=== PATIENT | male | born 1970 | race Caucasian/White ===

== ENCOUNTER 2020-07-09 10:33 | Outpatient (REF) | payer OTHER, SELFPAY ==
[2020-07-09 10:58] LABS: MANUAL DIFF FLAG NO
[2020-07-09 11:33] LABS: Glucose Urine UA NEG (NEG); Leukocyte Esterase Urine NEG (NEG); Nitrite Urine NEG (NEG); PH 8.5 (5.0-8.0); Specific Gravity - Urine 1.015 (1.005-1.025); Urine Blood NEG (NEG); Urine Ketones NEG (NEG); Urine Protein NEG (NEG-TRACE)
[2020-07-09 11:36] LABS: Basophils Percent Auto 0.5 % (0-2); Eosinophils Absolute Auto 0.3 X10*3/uL (0.0-0.4); Eosinophils Percent Auto 4.6 % (0-4); Hematocrit 49.7 % (42-52); Hemoglobin 16.4 g/dl (14.0-18.0); Imm Gran Abs Auto 0.01 X10*3/uL (0.00-0.03); Imm Gran Pct Auto 0.2 % (0.0-0.4); Lymphocytes Percent Auto 34.6 % (20-40); Mean Corpuscular Hemoglobin 32.1 pg (27.0-33.0); Mean Corpuscular Volume 97.3 fL (80-98); Mean Platelet Volume 9.3 fL (9.4-12.4); Monocytes Absolute Auto 0.5 X10*3/uL (0.1-1.2); Monocytes Percent Auto 8.5 % (2-11); Neutrophils Absolute Auto 2.9 X10*3/uL (2.0-8.3); Neutrophils Percent Auto 51.6 % (45-73); Platelet Count 289 X10*3/uL (160-400); Red Blood Count 5.11 X10*6/uL (4.60-5.80); Red Cell Distribution Width 12.3 % (11.0-16.0); White Blood Count 5.7 X10*3/uL (4.8-10.8)
[2020-07-09 11:47] LABS: Estimated Average Glucose 117 mg/dL; Hemoglobin A1c % 5.7 %
[2020-07-09 11:49] LABS: Appearance Urine CLEAR; Color Urine YELLOW
[2020-07-09 12:04] LABS: Alanine Aminotransferase 43 U/L (0-40); Albumin Level 4.4 g/dL (3.5-5.0); Alkaline Phosphatase 59 U/L (39-117); Anion Gap 12 (12-20); Aspartate Amino Transferase 25 U/L (5-37); Bilirubin Total 0.8 mg/dL (0.0-1.0); Blood Urea Nitrogen 21 mg/dL (9-16); Calcium 9.1 mg/dL (8.4-10.2); Carbon Dioxide 28 mmol/L (22-29); Chloride 105 mmol/L (96-108); Cholesterol 197 mg/dL; Estimated Glomerular Filt Rate > 60; Glucose Fasting 116 mg/dL (60-99); HDL Cholesterol 48 mg/dL; LDL Cholesterol Calculated 129 mg/dl; Sodium 141 mmol/L (135-145); Total Protein 6.9 g/dL (6.5-8.0); Triglycerides 102 mg/dL
[2020-07-09 12:18] LABS: Creatinine Urine 126.52 mg/dL; Microalbumin Urine < 5.0 mg/L
[2020-07-09 12:26] LABS: PSA,Total (Free>4and<10) 2.07 ng/mL (0.00-4.00)
== END 2020-07-09 10:34 | disposition home or self-care (01) ==
LOC: HO.LNP 10:33
PROVIDERS: Visit Provider Internal Medicine
DX: Z00.00 Encounter for general adult medical examination without abnormal findings (principal); Z12.5 Encounter for screening for malignant neoplasm of prostate; I10 Essential (primary) hypertension; R73.03 Prediabetes; R97.20 Elevated prostate specific antigen [PSA]
CPT/HCPCS: 80053; 80061; 81003; 82043; 83036; 84153; 85025

== ENCOUNTER 2020-09-06 10:06 | Outpatient (REF) | payer OTHER, SELFPAY ==
[2020-09-06 11:14] LABS: Blood Urea Nitrogen 18 mg/dL (9-16)
== END 2020-09-06 10:07 | disposition home or self-care (01) ==
LOC: HO.LNP 10:06
PROVIDERS: Visit Provider Internal Medicine
DX: R79.9 Abnormal finding of blood chemistry, unspecified (principal)
CPT/HCPCS: 84520

== ENCOUNTER 2020-09-10 16:00 | Outpatient (RCR) | payer OTHER, SELFPAY ==
--- NOTE | 2020-08-07 17:49 | MHC.PT.EP ---
[facility] [place] [facility] [place] [facility] [place] [facility] [address] Yamil Mondragon [address] [phone] F: [phone] F: [phone] F: [phone] F: [phone] Physical Therapy Plan of Care Date of Evaluation: 08/07/20 Date of Surgery: N/A Diagnosis: pain in R shoulder Assessment: pt's signs and symptoms consistent w/ poor habitual posture and muscle tension and tightness. pt presents to physical therapy with pain, decreased strength, impaired functional mobility, and impaired postural awareness. pt is a good candidate for skilled PT due to age, potential remediation of impairments, typical disease/condition progression and prognosis, comorbidities, and motivation. pt would benefit from tailored strengthening and stretching exercise program, functional training, postural re-training, neuromuscular re-education, and modalities as needed for pain. Frequency and Duration: The patient will be seen 2x/wk for 4 wks Short Term Goals: pt will be I w/ HEP to promote self-management of condition. pt will demo proper sitting posture w/ lumbar roll to facilitate neutral spine assessed via teachback method. [employer] Goals: pt will report a statistically significant improvement in self-reported outcome measure, SPADI, to facilitate return to PLOF. pt will report <1/10 neck/shoulder pain w/ 8 hr work shift to facilitate pain-free return to work. Treatment Plan: Modalities to reduce pain, spasms and effusion. Manual therapy to restore motion and function. Therapeutic exercise to improve strength and flexibility. Neuromuscular re-education for posture and balance. Therapeutic activities to return to functional activities of daily living. Electronically signed by: Destini Oh PT, DPT Please sign and return to therapist. Thank you for your referral.
--- NOTE | 2020-09-23 12:20 | MHC.PT.DC ---
[facility] [place] Office [place] Office [place] Office [address] Yamil Mondragon [address] [phone] F: [phone] F: [phone] F: [phone] F: [phone] Physical Therapy Discharge Report Diagnosis: pain in R shoulder Date of Surgery: N/A Date of Evaluation: 08/07/20 Date of Discharge: 09/23/20 Treatments to Date: 7 Cancellations to Date: 1 No Shows to Date: 0 Discharge Status: Improved Function Independent with HEP Discharge Summary: The patient called to cancel his last visit and has not rescheduled. 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 He was instructed in strategies to reduce stress on neck with work-related activities. He is independent with his home exercise program. Overall, he was demonstrating improved cervical and shoulder mechanics with movement. He is discharged from this physical therapy plan of care. Electronically signed by: Destini Oh PT, DPT Please sign and return to therapist. Thank you for your referral.
== END 2020-09-23 12:21 | disposition other institution (70) ==
LOC: HO.PT 16:00
PROVIDERS: PCP Internal Medicine; Visit Provider Internal Medicine
DX: M25.511 Pain in right shoulder (principal)
CPT/HCPCS: 97110; 97112; 97140; 97161; 97530

== ENCOUNTER 2021-07-28 10:23 | Outpatient (REF) | payer OTHER, SELFPAY ==
[2021-07-28 10:31] LABS: MANUAL DIFF FLAG NO
[2021-07-28 11:01] LABS: Appearance Urine CLEAR; Color Urine YELLOW; Glucose Urine UA NEG (NEG); Leukocyte Esterase Urine NEG (NEG); Nitrite Urine NEG (NEG); Specific Gravity - Urine 1.015 (1.005-1.025); Urine Blood NEG (NEG); Urine Ketones NEG (NEG); Urine Protein NEG (NEG-TRACE)
[2021-07-28 11:02] LABS: Basophils Percent Auto 0.5 % (0-2); Eosinophils Absolute Auto 0.3 X10*3/uL (0.0-0.4); Eosinophils Percent Auto 5.4 % (0-4); Hematocrit 48.8 % (42.0-52.0); Hemoglobin 15.9 g/dl (14.0-18.0); Imm Gran Abs Auto 0.02 X10*3/uL (0.00-0.03); Imm Gran Pct Auto 0.3 % (0.0-0.4); Lymphocytes Absolute Auto 2.2 X10*3/uL (1.2-4.9); Lymphocytes Percent Auto 36.7 % (20-40); Mean Corpuscular HGB Conc 32.6 g/dl (31.0-36.0); Mean Corpuscular Hemoglobin 31.4 pg (27.0-33.0); Mean Corpuscular Volume 96.3 fL (80.0-98.0); Mean Platelet Volume 9.3 fL (9.4-12.4); Monocytes Absolute Auto 0.6 X10*3/uL (0.1-1.2); Monocytes Percent Auto 10.7 % (2-11); Neutrophils Absolute Auto 2.7 x10*3/uL (2.0-8.3); Neutrophils Percent Auto 46.4 % (45-73); Platelet Count 280 X10*3/uL (160-400); Red Blood Count 5.07 X10*6/uL (4.60-5.80); Red Cell Distribution Width 12.6 % (11.0-16.0); White Blood Count 5.9 X10*3/uL (4.8-10.8)
[2021-07-28 11:12] LABS: Alanine Aminotransferase 34 U/L (0-40); Alkaline Phosphatase 58 U/L (39-117); Anion Gap 10 (12-20); Aspartate Amino Transferase 26 U/L (5-37); Bilirubin Total 1.1 mg/dL (0.0-1.0); Blood Urea Nitrogen 17 mg/dL (9-16); Calcium 9.4 mg/dL (8.4-10.2); Carbon Dioxide 29 mmol/L (22-29); Chloride 104 mmol/L (96-108); Cholesterol 187 mg/dL; Estimated Glomerular Filt Rate > 60; Glucose Random 127 mg/dL (60-115); HDL Cholesterol 43 mg/dL; LDL Cholesterol Calculated 118 mg/dl; Potassium 4.2 mmol/L (3.3-5.1); Sodium 139 mmol/L (135-145); Total Protein 6.6 g/dL (6.5-8.0); Triglycerides 132 mg/dL
[2021-07-28 11:17] LABS: Estimated Average Glucose 123 mg/dL; Hemoglobin A1c % 5.9 %
[2021-07-28 11:33] LABS: PSA,Total (Free>4and<10) 3.11 ng/mL (0.00-4.00)
== END 2021-07-28 10:24 | disposition home or self-care (01) ==
LOC: HO.LNP 10:23
PROVIDERS: Visit Provider Internal Medicine
DX: Z00.00 Encounter for general adult medical examination without abnormal findings (principal); Z12.5 Encounter for screening for malignant neoplasm of prostate; I10 Essential (primary) hypertension; R73.03 Prediabetes; R97.20 Elevated prostate specific antigen [PSA]
CPT/HCPCS: 80053; 80061; 81003; 83036; 84153; 85025

== ENCOUNTER 2021-08-04 10:44 | Outpatient (REF) | payer OTHER, SELFPAY ==
[2021-08-04 12:26] LABS: Prostate Specific Antigen 1.82 ng/mL (<0.05-4.0)
== END 2021-08-04 10:45 | disposition home or self-care (01) ==
LOC: HO.LNP 10:44
PROVIDERS: PCP Internal Medicine; Visit Provider Internal Medicine
DX: R97.20 Elevated prostate specific antigen [PSA] (principal); Z12.5 Encounter for screening for malignant neoplasm of prostate
CPT/HCPCS: 84153

== ENCOUNTER 2022-01-07 08:13 | Day surgery (SDC) | payer OTHER, SELFPAY ==
[2022-01-01 09:06] VITALS: BMI 28.6
[2022-01-07 08:35] VITALS: BMI 28.6
[2022-01-07 08:53] VITALS: BP 151/89; PULSE 72; RESP 17; TEMP 36.5; O2SAT 97; BMI 28.6
[2022-01-07] MEDS: Lactated Ringers 1,000 ML 50 ML IVCONT (09:17)
--- NOTE | 2022-01-07 10:09 | P.CONAN_ITS ---
[facility] Active Problems Active Problems: hypertension Past Medical History Medical History No known health problems Family History Family history of problems with anesthesia: No Surgical History Surgical History No pertinent past surgical history History of Problems with Anesthesia: No Social History Social History Patient Tobacco Use Status: Never used Tobacco Use of substances other than those prescribed or required for medical reasons: No Are you DNR?: No Advance Directives: No Advance Directives Information Provided: Yes Meds Allergies Allergy/AdvReac Type Severity Reaction Status Date / Time No Known Allergies Allergy Verified 01/01/22 09:05 Active Medications: Current Medications Lactated Ringer's (Lr) 1,000 mls @ 50 mls/hr IVCONT .Q20H YENY Last Admin: 01/07/22 09:17 Dose: 50 mls/hr Ondansetron HCl (Ondansetron Hcl 4 Mg/2 Ml Vial) 4 mg IVPUSH ONCE PRN PRN Reason: Nausea and Vomiting Sodium Biphosphate/Sodium Phosphate (Sodium Phosphate,York-Dibasic 133 Ml Enema) 133 ml MS ONCE PRN PRN Reason: Poor Colonoscopy Prep Results Home Medications Medication Instructions Recorded Confirmed Last Taken Type tadalafil 20 mg tablet 10 mg PO DAILY PRN Erectile 01/01/22 01/01/22 Unknown History Dysfunction Exam Exam Date and Time: January 07, 2022 1009 Height,Weight and Vital Signs: Height 5 ft 5 in Weight 78.018 kg Last Vital Signs Temp 97.7 F 01/07/22 08:53 Pulse 72 01/07/22 08:53 Resp 17 01/07/22 08:53 BP 151/89 H 01/07/22 08:53 Pulse Ox 97 01/07/22 08:53 O2 Del Method 01/07/22 08:53 Airway Mallampati Class: IV TM Dist: >3cm Neck ROM: Full Loose/Missing/Broken Teeth: No Heart: rrr Lungs: clear Assessment and Plan Final Anesthetic Review Family History of Problems with Anesthesia: No History of Problems with Anesthesia: No NPO: Yes ASA Class: II Final Preanesthetic Review: No Changes in Pt Med Stat, Meds/Allgs Chart Reviewed, Consent Obtained/Reviewed and Anes Risks/Benef Reviewed Patient Risk: Low Procedure Risk: Low Anesthetic Plan Anesthetic Plan: MAC: Disposition: Standard PACU
--- NOTE | 2022-01-07 10:59 | PM.OP ---
Brief Operative Note Date of Service: 01/07/22 Pre-op diagnosis: Screening Post-op diagnosis: other (Polyp) Procedure: Colonoscopy to the cecum and TI with bx/removal of polyp Surgeon: Clarence Rizvi Anesthesia: MAC Was an Geochemical Laboratory Technician used for this Procedure?: No Estimated blood loss (mL): 2.0 Pathology: other (A. Cecal polyp) Condition: stable Disposition: PACU
[2022-01-07 11:00] VITALS: BP 103/62; PULSE 82; RESP 18; TEMP 36.6; O2SAT 96
[2022-01-07 11:15] VITALS: BP 118/83; PULSE 72; RESP 18; TEMP 36.6; O2SAT 97
--- NOTE | 2022-01-07 23:18 | OP_ITS ---
SURGEON: Clarence Rizvi MD INDICATIONS: The patient presents for evaluation of colorectal cancer screening and family history of colon cancer. Full consent was obtained from him for this, including risks of bleeding and perforation. PREOPERATIVE DIAGNOSIS: POSTOPERATIVE DIAGNOSIS: PROCEDURE PERFORMED: Colonoscopy to the cecum and terminal ileum with biopsy and removal of polyp. ESTIMATED BLOOD LOSS: COMPLICATIONS: ANESTHESIA: Monitored anesthesia care. ASSISTANTS: SPECIMENS: PREOPERATIVE DIAGNOSES: Colorectal cancer screening and family history of colon. POSTOPERATIVE DIAGNOSES: Colorectal cancer screening and family history of colon, small colon polyp, internal hemorrhoids. DESCRIPTION OF PROCEDURE: The patient was placed in the left lateral decubitus position. The digital rectal exam revealed no abnormalities. The Olympus video pediatric colonoscope was entered into the rectum and advanced easily to the cecum. Once in the cecum, I did identify normal-appearing ileocecal valve. The terminal ileum was cannulated and appeared normal. Scope was withdrawn back in the colon. The entire cecum and ileocecal valve appeared normal other than an approximately 3 or 4 mm polyp in the cecum, which was biopsied and completely removed with cold biopsy forceps. The scope was slowly withdrawn assessing all mucosal surfaces carefully. Preparation was excellent. I did not visualize any other polyps, colitis, nor angiodysplasia. In the rectum, scope was retroflexed visualizing minimal internal hemorrhoids, but no other pathology. The rectal mucosa appeared normal. The scope was straightened and withdrawn from the patient. He tolerated the procedure well and was returned to the recovery area in stable condition. IMPRESSION: 1. Small colon polyp, status post biopsy and removal. 2. Small internal hemorrhoids. PLAN: The results of the biopsy will be checked. Even if this is not a tubular adenoma, I would recommend a followup coloscopy in 5 years for further screening, given the family history of colon cancer in his father. He will otherwise see me on a p.r.n. basis. Clarence Rizvi MD RMHiro/SAMAN / [phone]
== END 2022-01-07 11:37 | disposition home or self-care (01) ==
PROVIDERS: PCP Internal Medicine; Visit Provider Internal Medicine
PROC: 0DJD8ZZ Inspection of Lower Intestinal Tract, Via Natural or Artificial Opening Endoscopic (ICD-10-PCS; CPT 45378; principal; 2022-01-07 09:40)
DX: Z12.11 Encounter for screening for malignant neoplasm of colon (principal); Z80.0 Family history of malignant neoplasm of digestive organs; K63.5 Polyp of colon; K64.8 Other hemorrhoids; N52.9 Male erectile dysfunction, unspecified; Z79.899 Other long term (current) drug therapy
CPT/HCPCS: 45380; 88305

== ENCOUNTER 2022-07-30 11:49 | Outpatient (REF) | payer OTHER, SELFPAY ==
[2022-07-30 11:56] LABS: MANUAL DIFF FLAG NO
[2022-07-30 12:48] LABS: Basophils Percent Auto 0.7 % (0-2); Eosinophils Absolute Auto 0.2 X10*3/uL (0.0-0.4); Eosinophils Percent Auto 3.6 % (0-4); Hemoglobin 16.5 g/dl (14.0-18.0); Imm Gran Abs Auto 0.01 X10*3/uL (0.00-0.03); Imm Gran Pct Auto 0.2 % (0.0-0.4); Mean Corpuscular HGB Conc 33.7 g/dl (31.0-36.0); Mean Corpuscular Hemoglobin 32.4 pg (27.0-33.0); Mean Corpuscular Volume 96.3 fL (80.0-98.0); Mean Platelet Volume 9.4 fL (9.4-12.4); Monocytes Absolute Auto 0.6 X10*3/uL (0.1-1.2); Monocytes Percent Auto 10.5 % (2-11); Neutrophils Absolute Auto 2.7 x10*3/uL (2.0-8.3); Platelet Count 277 X10*3/uL (160-400); Red Blood Count 5.09 X10*6/uL (4.60-5.80); Red Cell Distribution Width 12.8 % (11.0-16.0); White Blood Count 5.5 X10*3/uL (4.8-10.8)
[2022-07-30 12:52] LABS: Appearance Urine Clear; Color Urine Yellow; Glucose Urine UA Negative (Negative); Leukocyte Esterase Urine Negative (Negative); Nitrite Urine Negative (Negative); PH 8.5 (5.0-9.0); Urine Blood Negative (Negative); Urine Ketones Negative (Negative); Urine Protein Negative (Neg-Trace)
[2022-07-30 12:56] LABS: Bacteria Urine None Seen (None Seen); Hyaline Casts Urine 0-2 /LPF (0-2); RBC Urine 0-2 /HPF (0-2); Squamous Epithelial Cell Urine 0-2 /HPF (0-2); WBC Urine 0-5 /HPF (0-5)
[2022-07-30 12:58] LABS: Estimated Average Glucose 126 mg/dL
[2022-07-30 13:41] LABS: Creatinine Urine 64.77 mg/dL; Microalbumin Urine < 5.0 mg/L
[2022-07-30 14:01] LABS: Alanine Aminotransferase 50 U/L (0-40); Albumin Level 4.2 g/dL (3.5-5.0); Alkaline Phosphatase 61 U/L (39-117); Anion Gap 10 (12-20); Aspartate Amino Transferase 29 U/L (5-37); Bilirubin Total 0.9 mg/dL (0.0-1.0); Blood Urea Nitrogen 16 mg/dL (9-16); Calcium 8.8 mg/dL (8.4-10.2); Carbon Dioxide 29 mmol/L (22-29); Chloride 105 mmol/L (96-108); Cholesterol 217 mg/dL; Estimated Glomerular Filt Rate > 60; Glucose Fasting 119 mg/dL (60-99); HDL Cholesterol 43 mg/dL; LDL Cholesterol Calculated 152 mg/dl; Potassium 3.9 mmol/L (3.3-5.1); Sodium 140 mmol/L (135-145); Total Protein 6.6 g/dL (6.5-8.0); Triglycerides 114 mg/dL
[2022-07-30 14:06] LABS: PSA,Total (Free>4and<10) 1.81 ng/mL (0.00-4.00)
== END 2022-07-30 11:50 | disposition home or self-care (01) ==
LOC: HO.LNP 11:49
PROVIDERS: Visit Provider Internal Medicine
DX: Z00.00 Encounter for general adult medical examination without abnormal findings (principal); I10 Essential (primary) hypertension; R73.03 Prediabetes; R97.20 Elevated prostate specific antigen [PSA]; Z12.5 Encounter for screening for malignant neoplasm of prostate
CPT/HCPCS: 80053; 80061; 81001; 82043; 83036; 84153; 85025

== ENCOUNTER 2023-08-02 10:50 | Outpatient (REF) | payer SELFPAY ==
[2023-08-02 10:55] LABS: MANUAL DIFF FLAG NO
[2023-08-02 11:36] LABS: Appearance Urine Clear; Color Urine Yellow; Glucose Urine UA Negative (Negative); Leukocyte Esterase Urine Negative (Negative); Nitrite Urine Negative (Negative); PH 7.5 (5.0-9.0); Urine Blood Negative (Negative); Urine Ketones Negative (Negative); Urine Protein Negative (Neg-Trace)
[2023-08-02 11:39] LABS: Bacteria Urine None Seen (None Seen); Basophils Percent Auto 0.5 % (0-2); Eosinophils Absolute Auto 0.1 X10*3/uL (0.0-0.4); Eosinophils Percent Auto 2.3 % (0-4); Hematocrit 48.9 % (42.0-52.0); Hemoglobin 16.3 g/dl (14.0-18.0); Hyaline Casts Urine 0-2 /LPF (0-2); Imm Gran Abs Auto 0.02 X10*3/uL (0.00-0.03); Imm Gran Pct Auto 0.4 % (0.0-0.4); Lymphocytes Percent Auto 36.1 % (20-40); Mean Corpuscular HGB Conc 33.3 g/dl (31.0-36.0); Mean Corpuscular Hemoglobin 31.8 pg (27.0-33.0); Mean Corpuscular Volume 95.3 fL (80.0-98.0); Mean Platelet Volume 9.4 fL (9.4-12.4); Monocytes Absolute Auto 0.5 X10*3/uL (0.1-1.2); Monocytes Percent Auto 8.5 % (2-11); Neutrophils Absolute Auto 2.9 x10*3/uL (2.0-8.3); Neutrophils Percent Auto 52.2 % (45-73); Platelet Count 268 X10*3/uL (160-400); RBC Urine 0-2 /HPF (0-2); Red Blood Count 5.13 X10*6/uL (4.60-5.80); Red Cell Distribution Width 12.7 % (11.0-16.0); Squamous Epithelial Cell Urine 0-2 /HPF (0-2); WBC Urine 0-5 /HPF (0-5); White Blood Count 5.6 X10*3/uL (4.8-10.8)
[2023-08-02 11:54] LABS: Estimated Average Glucose 131 mg/dL; Hemoglobin A1c % 6.2 % (<6.0)
[2023-08-02 11:59] LABS: Alanine Aminotransferase 41 U/L (0-40); Albumin Level 4.2 g/dL (3.5-5.0); Alkaline Phosphatase 62 U/L (39-117); Anion Gap 13 (12-20); Aspartate Amino Transferase 28 U/L (5-37); Bilirubin Total 0.8 mg/dL (0.0-1.0); Blood Urea Nitrogen 14 mg/dL (9-16); Calcium 9.7 mg/dL (8.4-10.2); Carbon Dioxide 25 mmol/L (22-29); Chloride 106 mmol/L (96-108); Cholesterol 168 mg/dL (<200); Estimated Glomerular Filt Rate > 60; Glucose Fasting 128 mg/dL (60-99); HDL Cholesterol 45 mg/dL (>40); LDL Cholesterol Calculated 107 mg/dL (<100); Potassium 4.1 mmol/L (3.3-5.1); Sodium 140 mmol/L (135-145); Total Protein 7.1 g/dL (6.5-8.0); Triglycerides 80 mg/dL (<150)
[2023-08-02 12:03] LABS: PSA,Total (Free>4and<10) 3.48 ng/mL (0.00-4.00)
[2023-08-02 12:29] LABS: Creatinine Urine 54.14 mg/dL; Microalbumin Urine < 5.0 mg/L
== END 2023-08-02 10:51 | disposition home or self-care (01) ==
LOC: HO.LNP 10:50
PROVIDERS: Visit Provider Internal Medicine
DX: Z00.00 Encounter for general adult medical examination without abnormal findings (principal); Z12.5 Encounter for screening for malignant neoplasm of prostate; I10 Essential (primary) hypertension; R73.03 Prediabetes; R97.20 Elevated prostate specific antigen [PSA]
CPT/HCPCS: 80053; 80061; 81001; 82043; 82570; 83036; 84153; 85025

== ENCOUNTER 2023-10-07 11:02 | Outpatient (REF) | payer OTHER, SELFPAY ==
[2023-10-07 12:31] LABS: PSA,Total (Free>4and<10) 2.66 ng/mL (0.00-4.00)
== END 2023-10-07 11:03 | disposition home or self-care (01) ==
LOC: HO.LNP 11:02
PROVIDERS: Visit Provider Internal Medicine
DX: R97.20 Elevated prostate specific antigen [PSA] (principal); Z12.5 Encounter for screening for malignant neoplasm of prostate
CPT/HCPCS: 84153

== ENCOUNTER 2024-04-18 11:55 | Outpatient (REF) | payer OTHER, SELFPAY ==
[2024-04-18 13:06] LABS: PSA,Total (Free>4and<10) 3.18 ng/mL (0.00-4.00)
--- OUTSIDE RECORDS SUMMARY | 2024-04-25 13:36 | XMS_ITS ---
Author Organization Sundeep Aponte MD Address [address] [place] [phone] Care Team Providers Care Riprap Worker Name Role Phone Sundeep Aponte Primary Care Provider [phone] ALLERGIES No Known Allergies REASON FOR VISIT 6 MO F/U MEDICATIONS Medication SIG (Take, Route, Frequency, Duration) Notes Start Date End Date Status Fluticasone Propionate 50 MCG/ACT 1 spray in each nostril Nasally Twice a day for 30 days Active Tadalafil 20 MG 1/2 tablet Orally On ce a day as needed for 60 days 07/14/2019 Active IMMUNIZATIONS Vaccine Route Administration Date Status Comme nts Fluarix Quadrivalent - 150 Unknown 02/07/2024 Refused VITAL SIGNS BMI 27.21 kg/m2 02/07/2024 Blood pressure systolic 158 mm Hg 02/07/20 24 Blood pressure diastolic 90 mm Hg 024 Height 68 in 02/07/2024 Weight 179 lbs 02/07/2024 weight is up 3 pounds since 08-09-23 Encounters Encounter Location Date Provider Diagnosis Sundeep Aponte MD [address] [place] [phone] 02/07/2024 Sundeep Aponte Elevated PSA R97.20 and Essential hypertension I10 ASSESSMENTS Encounter Date Diagnosis Assessment Notes Treatment Notes Treatment Clinical Notes 02/07/2024 Elevated PSA (ICD-10 - R97.20) returned to normal, will continue to monitor 02/07/2024 Essential hypertension (ICD-10 - I10) fluctuates. hopefully with a little wait loss and exercise will not need meds PLAN OF TREATMENT Treatment Notes Assessment Notes Elevated PSA returned to normal, will continue to monitor Essential hypertension fluctuates. hopef ully with a little wait loss and exercise will not need meds Next Appt Details Provider Name:Sundeep thaor, 08/04/2024 07:30:00 AM, [address] [place] [address] Drive, [address], [place], [place], [phone], Provider Name:Sundeep thaor, 08/11/2024 08:30:00 AM, [address], [address], [place], [place], [phone], Progress Notes * Examination Category Sub-Category Detail Notes General Examination GENERAL APPEARANCE: alert, w ell hydrated, in no distress , male HEAD: normocephalic HEART: regular rate and rhy thm, no murmurs, rubs, gallops LUNGS: no wheezes, rales, r honchi, good air movement, clear to auscultation bilaterally
--- OUTSIDE RECORDS SUMMARY | 2024-04-25 13:36 | XMS_ITS ---
Author Organization Sundeep Aponte MD Address [address] [place] [phone] Care Team Providers Care Dyno Technician Name Role Phone Sundeep Aponte Primary Care Provider [phone] RESULTS Component Value Reference Range Notes PSA,Total (Free>4and<10) Reviewed date:10/07/2023 01:04:57 PM Interpretation: Performing Lab:[facility], [address] [place] [phone] Notes/Report: PSA,Total (Free>4and<10) 2.66 0.00-4.00 ng/mL A Free PSA was not performed: The percentage of Free PSA can be used to enhance the differentiation of prostate cancer from benign prostatic disease in subjects whose PSA levels are between 4.0 and 10.0 ng/mL. For subjects whose PSA levels are below 4.0 or above 10.0 ng/mL, the risk of prostate cancer is determined on the basis of the PSA alone. Therefore the % Free PSA is recommended only for those subjects whose PSA levels are between 4.0 and 10.0 ng/mL. PSA methodology: Diamond Alinity i Chemiluminescent Microparticle Immunoassay (CMIA) REASON FOR VISIT PSA, TOTAL Encounters Encounter Location Date Provider Diagnosis Sundeep Aponte MD [address] [place] [phone] 10/07/2023 Sundeep Aponte Elevated PSA R97.20 ASSESSMENTS Encounter Date Diagnosis Assessment Notes Treatment Notes Treatment Clinical Notes 10/07/2023 Elevated PSA (ICD-10 - R97.20) PLAN OF TREATMENT Next Appt Details Provider Name:Sundeep el, 08/04/2024 07:30:00 AM, [address] [place] [address], [place] [address], [place], [phone], Provider Name:Sundeep el, 08/11/2024 08:30:00 AM, [address] [place] [address], [place] [address], [place], [phone],
--- OUTSIDE RECORDS SUMMARY | 2024-04-25 13:36 | XMS_ITS ---
Author Organization Sundeep Aponte MD Address [address] [place] [phone] Care Team Providers Care Manager Investigations Name Role Phone Sundeep Aponte Primary Care Provider [phone] RESULTS Component Value Reference Range Notes PSA,Total (Free>4and<10) Reviewed date:04/18/2024 01:24:38 PM Interpretation: Performing Lab:[facility], [address] [place] [phone] Notes/Report: PSA,Total (Free>4and<10) 3.18 0.00-4.00 ng/mL A Free PSA was not [...] Chemiluminescent Microparticle Immunoassay (CMIA) REASON FOR VISIT Repeat PSA Encounters Encounter Location Date Provider Diagnosis Sundeep Aponte MD [address] [place] [phone] 04/18/2024 Sundeep Aponte Prostatism N40.0 ASSESSMENTS Encounter Date Diagnosis Assessment Notes Treatment Notes Treatment Clinical Notes 04/18/2024 Prostatism (ICD-10 - N40.0) PLAN OF TREATMENT Next Appt Details Provider Name:Sundeep el, 08/04/2024 07:30:00 AM, [address] [place] [address], [address], [place], [phone], Provider Name:Sundeep el, 08/11/2024 08:30:00 AM, [address] [place] [address], [address], [place], [phone],
--- OUTSIDE RECORDS SUMMARY | 2024-04-25 13:37 | XMS_ITS | Patient Health Record ---
Author Organization Sundeep Aponte MD Address [address] [place], [place] [id number] Care Team Providers Care Worm Raiser Name Role Phone Sundeep Aponte Primary Care Provider [phone] ALLERGIES No Known Allergies RESULTS Component Value Reference Range Notes Farooq Langston Reviewed date:08/02/2023 12:31:47 PM Interpretation: Performing Lab:[facility], [address] [place] [phone] Notes/Report: Farooq Langston See Note Specimen held untested for 24 hours; Call to request Chemistry testing. Complete Blood Count Auto Di ff Reviewed date:08/02/2023 05:23:53 PM Interpretation: Performing Lab:[facility], [address] [place] [phone] Notes/Report: White Blood Count 5.6 4.8-10.8 X10*3/uL Red Blood Count 5.13 4.60-5.80 X10*6/uL Hemoglobin 16.3 14.0-18.0 g/dl Hematocrit 48.9 42.0-52.0 % Mean Corpuscular Volume 95.3 80.0-98.0 fL Mean Corpuscular Hemoglobin 31.8 27.0-33.0 pg Mean Corpuscular HGB Conc 33.3 31.0-36.0 g/dl Red Cell Distribution Width 12.7 11.0-16.0 % Platelet Count 268 160-400 X10*3/uL Mean Platelet Volume 9.4 9.4-12.4 fL Neutrophils Percent Auto 52.2 45-73 % Imm Gran Pct Auto 0.4 0.0-0.4 % Lymphocytes Percent Auto 36.1 20-40 % Monocytes Percent Auto 8.5 2-11 % Eosinophils Percent Auto 2.3 0-4 % Basophils Percent Auto 0.5 0-2 % NRBC Pct Auto 0.0 0.0-0.2 /100WBC Neutrophils Absolute Auto 2.9 2.0-8.3 x10*3/u L Imm Gran Abs Auto 0.02 0.00-0.03 X10*3/uL Lymphocytes Absolute Auto 2.0 1.2-4.9 X10*3/u L Monocytes Absolute Auto 0.5 0.1-1.2 X10*3/uL Eosinophils Absolute Auto 0.1 0.0-0.4 X10*3/u L Basophils Absolute Auto 0.0 0.0-0.2 X10*3/uL NRBC Abs Auto 0.000 0.0-0.012 X10*3/uL Comprehensive [place]. Panel Fa st Reviewed date:08/02/2023 05:19:11 PM Interpretation: Performing Lab:[facility], [address] [place] [phone] Notes/Report: Sodium 140 135-145 mmol/L Potassium 4.1 3.3-5.1 mmol/L Chloride 106 96-108 mmol/L Carbon Dioxide 25 22-29 mmol/L Anion Gap 13 12-20 Blood Urea Nitrogen 14 9-16 mg/dL Creatinine 1.05 0.5-1.4 mg/dL Estimated Glomerular Filt Rate > 60 NOTE: For -[place] individuals, multiply the result by 1.210. Chronic Kidney Disease: Estimated GFR < 60 mL/min/1.73m2 Severe Kidney Disease: Estimated GFR < 15 mL/min/1.73m2 Glucose Fasting 128 60-99 mg/dL A fasting glucose of 126 mg/dl or greater on more than one occasion is considered diagnostic of diabetes. Calcium 9.7 8.4-10.2 mg/dL Bilirubin Total 0.8 0.0-1.0 mg/dL Aspartate Amino Transferase 28 5-37 U/L Alanine Aminotransferase 41 0-40 U/L Total Protein 7.1 6.5-8.0 g/dL Albumin Level 4.2 3.5-5.0 g/dL Alkaline Phosphatase 62 39-117 U/L Lipid Panel Reviewed date:08/02/2023 12:43:21 PM Interpretation: Performing Lab:[address] [phone] Notes/Report: Triglycerides 80 <150 mg/dL Desirable Triglyceride: less than 150 mg/dL Borderline High Triglyceride 150-199 mg/dL High Triglyceride: 200-499 mg/dL Very High Triglyceride: greater than or equal to 5OO mg/dL Cholesterol 168 <200 mg/dL Desirable Cholesterol: less than 200 mg/dL Borderline High Cholesterol: 200-239 mg/dL High Cholesterol: greater than 239 mg/dL LDL Cholesterol Calculated 107 <100 mg/dL Desirable LDL: less than 100 mg/dL Near Optimal/Above Optimal LDL: 110-129 mg/dL Borderline High LDL: 130-159 mg/dL High LDL: 160-189 mg/dL Very High LDL: greater than or equal to 190 mg/dL HDL Cholesterol 45 >40 mg/dL Desirable HDL: greater than 40 mg/dL Note: This HDL assay may give artificially low results in patients with liver disease. PSA,Total (Free>4and<10) Reviewed date:08/09/2023 08:45:58 AM Interpretation:see back 08-09-23 Performing Lab:[address] [phone] Notes/Report: PSA,Total (Free>4and<10) 3.48 0.00-4.00 ng/mL A Free PSA was not [...] [employer] i Chemiluminescent Microparticle Immunoassay (CMIA) Microalbumin, Random Reviewed date:08/02/2023 12:32:00 PM Interpretation: Performing Lab:[address] [phone] Notes/Report: Creatinine Urine 54.14 Microalbumin Urine < 5.0 Microalbum/Creatinine Ratio Ur TNP <30 ug/mg cr Unable to calculate albumin/creatinine ratio due to low microalbumin or creatinine result. Hemoglobin A1c Reviewed date:08/02/2023 12:31:00 PM Interpretation: Performing Lab:[facility], [address] [place] [phone] Notes/Report: Hemoglobin A1c % 6.2 <6.0 % Hemoglobin A1C Reference Range Adults: 4.8 - 6.0 % Non diabetic: < 6.0 % Goal: < 7.0 % Additional Action Suggested: > 8.0 % Note: Hemoglobin A1c results are invalid for patients with abnormal amounts of HbF. Blood transfusions may impact the HbA1c concentration in the patient sample. Estimated Average Glucose 131 eAG = Estimated average glucose which is %A1C expressed as average glucose, using the formula of the U0A-Zuriemj Average Glucose study (ADAG), Diabetes Care, Vol.31,#8, Dec. 2007 UA ClnCatch+Micro w/rflx Cul t Reviewed date:08/02/2023 05:22:21 PM Interpretation: Performing Lab:[facility], [address] [place] [phone] Notes/Report: [id number] Urine, Clean Catch Color Urine Yellow Appearance Urine Clear PH 7.5 5.0-9.0 Glucose Urine UA Negative Negative mg/dL Urine Blood Negative Negative Specific [place] - Urine 1.010 1.005-1.025 Urine Protein Negative Neg-Trace mg/dL Urine Ketones Negative Negative mg/dL Nitrite Urine Negative Negative Leukocyte Esterase Urine Negative Negative RBC Urine 0-2 0-2 /HPF WBC Urine 0-5 0-5 /HPF Squamous Epithelial Cell Urine 0-2 0-2 /HPF Bacteria Urine None Seen None Seen Hyaline Casts Urine 0-2 0-2 /LPF Occult Blood, Stool, Guaiac Reviewed date:08/31/2023 03:52:54 PM Interpretation:Negative Performing Lab: Notes/Report: Negative Occult Blood, Stool, Guaiac Neg PSA,Total (Free>4and<10) Reviewed date:10/07/2023 01:04:57 PM Interpretation: Performing Lab:[facility], [address] [place] [phone] Notes/Report: PSA,Total (Free>4and<10) 2.66 0.00-4.00 ng/mL A [...] between 4.0 and 10.0 ng/mL. PSA methodology: [employer] i Chemiluminescent Microparticle Immunoassay (CMIA) PSA,Total (Free>4and<10) Reviewed date:04/18/2024 01:24:38 PM Interpretation: Performing Lab:[facility], [address] [place] [phone] Notes/Report: PSA,Total (Free>4and<10) 3.18 0.00-4.00 ng/mL A [...] between 4.0 and 10.0 ng/mL. PSA methodology: [employer] i Chemiluminescent Microparticle Immunoassay (CMIA) REASON FOR REFERRAL No Information MEDICATIONS Medication SIG (Take, Route, Frequency, Duration) Notes Start Date End Date Status Fluticasone Propionate 50 MCG/ACT 1 spray in each nostril Nasally Twice a day for 30 days Active Tadalafil 20 MG 1/2 tablet Orally On ce a day as needed for 60 days 07/14/2019 Active IMMUNIZATIONS Vaccine Route Administration Date Status Comme nts DECLINED, FLU Unknown 07/08/2012 Administered SARS-COV-2 Pfizer Unknown 09/11/2020 Administered SARS-COV-2 Pfizer Unknown 10/02/2020 Administered Fluarix Quadrivalent Unknown 03/09/2016 Refused Fluarix Quadrivalent Unknown 05/19/2016 Refused Fluarix Quadrivalent Unknown 06/28/2017 Refused TDaP Unknown 06/28/2017 Refused Fluarix Quadrivalent Unknown 06/21/2018 Refused Fluarix Quadrivalent Unknown 07/10/2019 Refused Fluarix Quadrivalent Unknown 01/12/2020 Refused Fluarix Quadrivalent Unknown 08/04/2021 Refused Fluarix Quadrivalent - 150 Unknown 02/07/2024 Refused SOCIAL HISTORY Tobacco Use: Social History Observation Description Date Details (start date - stop date) Never Smoker NA - NA Sex Assigned At : Social History Observation Description Sex Assigned At Unknown Tobacco Use/Smoking Question Answer Notes Patient is a nonsmoker Additional Findings: Tobacco Non-User Cu rrent non-smoker, currently using no form of tobacco Alcohol Screen Question Answer Notes Did you have a drink contain ing alcohol in the past year? Yes How often did you have a dri nk containing alcohol in the past year? Monthly or less (1 point) How many drinks did you have on a typical day when you were drinking in the past year? 1 or 2 drinks (0 point) How often did you have 6 or more drinks on one occasion in the past year? Never (0 point) Points 1 Interpretation Negative PROBLEMS Problem Type ICD Code Onset Dates Problem Status W/U Status Risk SNOMED Code Notes Problem Prostatism (N40.0) Active confirmed Prostatism (53612608) Problem Essential hypertension (I10) Active confirmed 82411488 Problem Erectile dysfunction, unspecified erectile dysfunction type (N52.9) Active confirmed 945430537 Problem Prediabetes (R73.03) Active confirmed 061301748 Problem Seasonal allergic rhinitis due to pollen (J30.1) Active confirmed 40721296 Problem Elevated PSA (R97.20) Active confirmed 964968471 VITAL SIGNS Blood pressure diastolic 90 mm Hg 02/07/2024 josé ght is up 3 pounds since 08-09-23 Height 68 in 02/07/2024 weight is up 3 pounds since 08-09-23 Blood pressure systolic 158 mm Hg 02/07/2024 weig ht is up 3 pounds since 08-09-23 Weight 179 lbs 02/07/2024 weight is up 3 pounds since 08-09-23 BMI 27.21 kg/m2 02/07/2024 weight is up 3 pounds since 08-09-23 Encounters Encounter Location Date Provider Diagnosis Sundeep Aponte MD [address] [place] [id number] 08/09/2023 Sundeep Aponte Erectile dysfunction , unspecified erectile dysfunction type N52.9 ; Annual physical exam Z00.00 ; Elevated PSA R97.20 ; Prediabetes R73.03 ; Essential hypertension I10 ; Colon cancer screening Z12.11 and Depression screening Z13.31 Sundeep Aponte MD [address] [place] [id number] 08/02/2023 Sundeep Aponte Blood tests for routine general physical examination Z00.00 ; Essential hypertension I10 ; Prediabetes R73.03 and Elevated PSA R97.20 Sundeep Aponte [address] [place] [id number] 10/07/2023 Sundeep Aponte Elevated PSA R97.20 Sundeep Aponte MD [address] [place] [id number] 04/18/2024 Sundeep Aponte Prostatism N40.0 Sundeep Aponte MD [address] [place] [id number] 02/07/2024 Sundeep Aponte Elevated PSA R97.20 and Essential hypertension I10 ASSESSMENTS Encounter Date Diagnosis Assessment Notes Treatment Notes Treatment Clinical Notes 08/09/2023 Annual physical exam (ICD-10 - Z00.00) labs reviewed and discussed with patient 08/09/2023 Erectile dysfunction, unspecified erectile dysfunction type (ICD-10 - N52.9) stable, will continue current regiment 08/02/2023 Essential hypertension (ICD-10 - I10) 08/02/2023 Blood tests for routine general physical examination (ICD-10 - Z00.00) 10/07/2023 Elevated PSA (ICD-10 - R97.20) 04/18/2024 Prostatism (ICD-10 - N40.0) 02/07/2024 Essential hypertension (ICD-10 - I10) fluctuates. hopefully with a little wait loss and exercise will not need meds 02/07/2024 Elevated PSA (ICD-10 - R97.20) returned to normal, will continue to monitor 08/09/2023 Elevated PSA (ICD-10 - R97.20) is followed by urology 08/02/2023 Prediabetes (ICD-10 - R73.03) 08/09/2023 Prediabetes (ICD-10 - R73.03) to watch diet, no need for medication at this time 08/02/2023 Elevated PSA (ICD-10 - R97.20) 08/09/2023 Essential hypertension (ICD-10 - I10) is labile. most likely will need treatment, will monitor 08/09/2023 Colon cancer screening (ICD-10 - Z12.11) guaiac negative 08/09/2023 Depression screening (ICD-10 - Z13.31) negative screen PLAN OF TREATMENT Pending Test Test Name Order Date Electrocardiogram (EKG) 05/29/2016 Electrocardiogram (EKG) 07/14/2019 Stress Test 03/09/2016 Next Appt Details Provider Name:Sundeep el, 08/04/2024 07:30:00 AM, [address] [place] [address], [address], [phone], Provider Name:Sundeep el, 08/11/2024 08:30:00 AM, [address] [place] [address], [address], [place], [place], [phone], Insurance Providers Payer Name Payer Address Payer Phone Subscriber Number Group Number Insured Name Patient Relationship to Insured Coverage Start Date Coverage End Date [facility] [address] [address] [place] [phone] [id number] Reggie Savage Self - patient is the insured MEDICAL (GENERAL) HISTORY Medical History History ICD Code Plantar fasciitis of left foot colonoscopy 01/07/22 5yrs ( 2026)
== END 2024-04-18 11:56 | disposition home or self-care (01) ==
LOC: HO.LNP 11:55
PROVIDERS: Visit Provider Internal Medicine
DX: N40.0 Benign prostatic hyperplasia without lower urinary tract symptoms (principal); Z12.5 Encounter for screening for malignant neoplasm of prostate
CPT/HCPCS: 84153

== ENCOUNTER 2024-08-04 11:39 | Outpatient (REF) | payer OTHER, SELFPAY ==
[2024-08-04 11:44] LABS: MANUAL DIFF FLAG NO
[2024-08-04 12:00] LABS: Appearance Urine Clear; Color Urine Yellow; Glucose Urine UA Negative (Negative); Leukocyte Esterase Urine Negative (Negative); Nitrite Urine Negative (Negative); PH 7.5 (5.0-9.0); Specific Gravity - Urine 1.015 (1.005-1.025); Urine Blood Negative (Negative); Urine Ketones Negative (Negative); Urine Protein Negative (Neg-Trace)
[2024-08-04 12:03] LABS: Bacteria Urine None Seen (None Seen); Hyaline Casts Urine 0-2 /LPF (0-2); RBC Urine 0-2 /HPF (0-2); Squamous Epithelial Cell Urine 0-2 /HPF (0-2); WBC Urine 0-5 /HPF (0-5)
[2024-08-04 12:07] LABS: Basophils Percent Auto 0.7 % (0-2); Eosinophils Absolute Auto 0.3 X10*3/uL (0.0-0.4); Eosinophils Percent Auto 5.6 % (0-4); Hematocrit 48.2 % (42.0-52.0); Hemoglobin 16.4 g/dl (14.0-18.0); Imm Gran Abs Auto 0.02 X10*3/uL (0.00-0.03); Imm Gran Pct Auto 0.4 % (0.0-0.4); Lymphocytes Percent Auto 34.9 % (20-40); Mean Corpuscular Hemoglobin 32.2 pg (27.0-33.0); Mean Corpuscular Volume 94.7 fL (80.0-98.0); Monocytes Absolute Auto 0.6 X10*3/uL (0.1-1.2); Neutrophils Absolute Auto 2.8 x10*3/uL (2.0-8.3); Neutrophils Percent Auto 48.4 % (45-73); Platelet Count 279 X10*3/uL (160-400); Red Blood Count 5.09 X10*6/uL (4.60-5.80); Red Cell Distribution Width 12.4 % (11.0-16.0); White Blood Count 5.7 X10*3/uL (4.8-10.8)
[2024-08-04 12:28] LABS: Albumin Level 4.2 g/dL (3.5-5.0); Alkaline Phosphatase 65 U/L (39-117); Anion Gap 10 (12-20); Aspartate Amino Transferase 39 U/L (5-37); Bilirubin Total 0.6 mg/dL (0.0-1.0); Blood Urea Nitrogen 17 mg/dL (9-16); Calcium 9.1 mg/dL (8.4-10.2); Carbon Dioxide 28 mmol/L (22-29); Chloride 107 mmol/L (96-108); Cholesterol 214 mg/dL (<200); Estimated Glomerular Filt Rate > 60; Glucose Random 116 mg/dL (60-115); HDL Cholesterol 45 mg/dL (>40); LDL Cholesterol Calculated 148 mg/dL (<100); Potassium 3.8 mmol/L (3.3-5.1); Sodium 141 mmol/L (135-145); Total Protein 7.2 g/dL (6.5-8.0); Triglycerides 106 mg/dL (<150)
[2024-08-04 12:39] LABS: Alanine Aminotransferase 63 U/L (0-40)
[2024-08-04 12:43] LABS: Creatinine Urine 82.48 mg/dL; Microalbumin Urine < 5.0 mg/L
[2024-08-04 12:52] LABS: PSA,Total (Free>4and<10) 2.49 ng/mL (0.00-4.00)
[2024-08-04 13:24] LABS: Estimated Average Glucose 143 mg/dL; Hemoglobin A1c % 6.6 % (<6.0)
== END 2024-08-04 11:40 | disposition home or self-care (01) ==
LOC: HO.LNP 11:39
PROVIDERS: Visit Provider Internal Medicine
DX: Z00.00 Encounter for general adult medical examination without abnormal findings (principal); I10 Essential (primary) hypertension; R73.03 Prediabetes; R97.20 Elevated prostate specific antigen [PSA]; Z12.5 Encounter for screening for malignant neoplasm of prostate
CPT/HCPCS: 80053; 80061; 81001; 82043; 82570; 83036; 84153; 85025

== ENCOUNTER 2024-09-08 09:47 | Outpatient (REF) | payer OTHER, SELFPAY ==
[2024-09-08 10:27] LABS: Estimated Average Glucose 131 mg/dL; Hemoglobin A1C 180.6421 umol/L; Hemoglobin A1c % 6.2 % (<6.0); Total Hemoglobin (HGBA1C) 4119.8588 umol/L
[2024-09-08 10:37] LABS: Alanine Aminotransferase 46 U/L (0-40); Albumin Level 4.1 g/dL (3.5-5.0); Alkaline Phosphatase 60 U/L (39-117); Aspartate Amino Transferase 34 U/L (5-37); Bilirubin Direct 0.3 mg/dL (0.0-0.5); Bilirubin Total 0.9 mg/dL (0.0-1.0); Glucose Fasting 134 mg/dL (60-99); Total Protein 6.5 g/dL (6.5-8.0)
[2024-09-08 10:41] LABS: HBS Num1 0.32 mIU/mL (0-7.99); HBc Num1 0.06 S/CO (0.00-0.79); HBsAGNum1 0.36 S/CO (0.00-0.99); Hepatitis B Core Antibody Nonreactive (Nonreactive); Hepatitis B Surface Antigen Negative (Negative); ~HepC Num1 0.08 S/CO (0.00-0.79); ~Hepatitis B Surface Antibody NONREACTIVE (Nonreactive); ~Hepatitis C Antibody Nonreactive (Nonreactive)
[2024-09-12 07:58] LABS: Hepatitis A Antibody IgM 0.14 Index (0-0.79); ~Hepatitis A Antibody IgM Nonreactive (Nonreactive)
== END 2024-09-08 09:48 | disposition home or self-care (01) ==
LOC: HO.LNP 09:47
PROVIDERS: Visit Provider Internal Medicine
DX: Z00.00 Encounter for general adult medical examination without abnormal findings (principal); R79.89 Other specified abnormal findings of blood chemistry; E11.9 Type 2 diabetes mellitus without complications
CPT/HCPCS: 80076; 82947; 83036; 86704; 86706; 86709; 86803; 87340